=== PATIENT | female | born 1980 | race Caucasian/White ===

== ENCOUNTER 2017-06-03 09:39 | Inpatient (IN) | payer BC ==
[2017-06-03 10:34] LABS: Urine Appearance Clear; Urine Blood Negative (Negative); Urine Color Yellow; Urine Ketones Negative (Negative); Urine Protein Negative (Negative); Urine Specific Gravity 1.008 (1.010-1.030); Urine Urobilinogen Negative (Negative)
[2017-06-03 10:42] LABS: ABS Basophils 0 10^3/ul (0-0.2); ABS Eosinophils 0 10^3/ul (0-0.6); ABS Lymphocytes 1.5 10^3/ul (1.0-4.8); ABS Monocytes 0.1 10^3/ul (0-0.8); ABS Neutrophils 4.6 10^3/ul (1.5-7.7); ABS Nucleated RBC 0 10^3/ul; Eosinophil % 0.1 % (0-6); Hematocrit 40 % (35-47); Hemoglobin 14.2 g/dl (12.0-16.0); Lymphocyte % 24.4 % (25-47); Mean Corpuscular HGB Conc 36 g/dl (31-36); Mean Corpuscular Hemoglobin 32 pg (27-31); Mean Corpuscular Volume 89 fL (80-97); Mean Platelet Volume 10 um3 (7.4-10.4); Nucleated Red Blood Cells % 0.1; Platelet Count 178 10^3/ul (150-450); Red Blood Count 4.49 10^6/ul (4.0-5.4); Red Cell Distribution Width 13 % (10.5-15); White Blood Count 6.3 10^3/ul (3.5-10.8)
[2017-06-03 11:05] LABS: EGFR Non-African American 68.6 (>60)
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
[2017-06-03] MEDS: Diazepam TAB(*) 5 MG PO PRN (16:17)
--- NOTE | 2017-06-03 18:19 | ED ---
Scottie Martin Gabriel, scribed for Jim Ceja MD on 06/03/17 at 1026 . Psychiatric Complaint - HPI Summary HPI Summary: This patient is a 37 year old F presenting to [facility] with a chief complaint of SI that began 5 months ago. She states it was either I was going to jump off the bridge or come here. She denies prior suicidal attempts and states if she did it she would have been successful. Patient was recently diagnosed with ocular melanoma and receives chemotherapy every three months with the next treatment being next month. She has a history of anxiety and depression and takes medication as needed. LNMP was two weeks ago but she is not regular. - History Of Current Complaint Chief Complaint: EDMentalHealth Time Seen by Provider: 06/03/17 10:18 Hx Obtained From: Patient Hx Last Menstrual Period: last week Onset/Duration: Still Present Timing: Constant Severity Initially: Moderate Severity Currently: Moderate Character: Depressed Aggravating Factor(s): Recent Stress Alleviating Factor(s): Nothing Associated Signs And Symptoms: Positive: Negative Has Suicidal: Reports: Thoughts, With A Plan. Denies: Demonstrates Gesture, Has Prior Attempt(s) Has Homicidal: Denies: Thoughts, With A Plan - Allergies/Home Medications Allergies/Adverse Reactions: Allergies Allergy/AdvReac Type Severity Reaction Status Date / Time Erythromycin Allergy Unknown Unknown Verified 01/10/14 10:29 Reaction Details PMH/Surg Hx/FS Hx/Imm Hx Endocrine/Hematology History: Denies: Hx Anticoagulant Therapy, Hx Diabetes, Hx Thyroid Disease Cardiovascular History: Denies: Hx Hypertension, Hx Pacemaker/ICD Respiratory History: Denies: Hx Asthma, Hx Chronic Obstructive Pulmonary Disease (COPD) History: Denies: Hx Renal Disease Sensory History: Denies: Hx Hearing Aid Neurological History: Denies: Hx Dementia, Hx Seizures Psychiatric History: Reports: Hx Anxiety, Hx Depression, Hx Panic Disorder - LITTLE ANXIETY Denies: Hx Substance Abuse - Cancer History Cancer Type, Location and Year: MALIGNANT NEOPLAM EYE Hx Radiation Therapy: Yes - [facility] TO EYE - Surgical History Surgery Procedure, Year, and Place: AC joint reconstruction [id number] ;. [facility] RADIATION RIGHT EYE 04/16/16 TO. 04/20/16 REMOVED RADIATION [place] (ONLY NEEDED FOR RADIATION DURATION); Infectious Disease History: No Infectious Disease History: Denies: Hx Hepatitis, Hx Human Immunodeficiency Virus (HIV), Traveled Outside the [place] in Last 30 Days - Family History Known Family History: Negative: Renal Disease, Respiratory Disease, Seizure Disorder - Social History Occupation: Employed Part-time, Student Alcohol Use: Occasionally Substance Use Type: Reports: None Smoking Status (MU): Never Smoked Tobacco Review of Systems Negative: Fever Negative: Slurred Speech Psychological: Other - SI Positive: Anxious, Depressed All Other Systems Reviewed And Are Negative: Yes Physical Exam - Summary Physical Exam Summary: VITAL SIGNS: Reviewed. GENERAL: Patient is a well-developed and nourished female who is lying comfortable in the stretcher. Patient is not in any acute respiratory distress. HEAD AND FACE: No signs of trauma. No ecchymosis, hematomas or skull depressions. No sinus tenderness. EYES: PERRLA, EOMI x 2, No injected conjunctiva, no nystagmus. EARS: Hearing grossly intact. Ear canals and tympanic membranes are within normal limits. MOUTH: Oropharynx within normal limits. NECK: Supple, trachea is midline, no adenopathy, no JVD, no carotid bruit, no c- spine tenderness, neck with full ROM. CHEST: Symmetric, no tenderness at palpation LUNGS: Clear to auscultation bilaterally. No wheezing or crackles. CVS: Regular rate and rhythm, S1 and S2 present, no murmurs or gallops appreciated. ABDOMEN: Soft, non-tender. No signs of distention. No rebound no guarding, and no masses palpated. Bowel sounds are normal. EXTREMITIES: FROM in all major joints, no edema, no cyanosis or clubbing. NEURO: Alert and oriented x 3. No acute neurological deficits. Speech is normal and follows commands. SKIN: Dry and warm PSYCH: Depressed, anxious, and crying. No homicidal thoughts or plan. No signs of psychosis or pressure speech. No tangential speech. Triage Information Reviewed: Yes Vital Signs On Initial Exam: Initial Vitals Temp Pulse Resp BP Pulse Ox 99.1 F 72 20 129/84 97 06/03/17 09:44 06/03/17 09:44 06/03/17 09:44 06/03/17 09:44 06/03/17 09:44 Vital Signs Reviewed: Yes Diagnostics - Vital Signs Vital Signs Temp Pulse Resp BP Pulse Ox 06/03/17 09:44 99.1 F 72 20 129/84 97 - Laboratory Result Diagrams: 06/03/17 10:25 06/03/17 10:25 Lab Statement: Any lab studies that have been ordered have been reviewed, and results considered in the medical decision making process. Course/Dx - Course Assessment/Plan: Blood work w/o a significant abnormality. He is medically cleared. He is awaiting for a MHE. Patient evaluated by Dr. Joe and recommends admission. Voluntary admission. - Differential Dx/Clinical Impression Differential Diagnosis/HQI/PQRI: Positive: Anxiety, Bipolar Disorder, Depression , Homicidal Ideation, Suicidal Ideation Provider Diagnosis: Depressive disorder Discharge - Discharge Plan Condition: Stable Disposition: ADMITTED TO [facility] documentation as recorded by the Scottie henriquez Gabriel accurately reflects the service I personally performed and the decisions made by , Jim Ceja MD.
[2017-06-03] MEDS: traZODone TAB* 100 MG PO SCH (20:04)
[2017-06-04] MEDS: Diazepam TAB(*) 5 MG PO PRN (09:02)
[2017-06-04] MEDS ORDERED: clonazePAM TAB(*) 0.5 MG PO ONE (12:00)
--- NOTE | 2017-06-04 12:00 | PN ---
MHU: Group Therapy Note - Service Type Service Type: [id number] Group Psychotherapy - Cognitive Behavioral Group Therapy ( CBT):Patient was attentive and participatory in CBT programming this morning, and remained in good behavioral control. Patient expressed positive insights regarding relevant treatment interventions and goals.
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
[2017-06-04] MEDS: traZODone TAB* 100 MG PO SCH (20:45)
[2017-06-04] MEDS: FLUoxetine CAP* 20 MG PO SCH (20:45)
[2017-06-04] MEDS: Clobetasol 0.05% OINT* 30 GM TUBE TOPICAL SCH (20:46)
[2017-06-04] MEDS ORDERED: Docusate CAP* 100 MG ONE (22:02)
[2017-06-04] MEDS: ETHINYL ESTRADIOL PO SCH (22:05)
[2017-06-04] MEDS: FERROUS FUMARATE PO SCH (22:05)
[2017-06-04] MEDS: NORETHINDRONE ACETATE PO SCH (22:05)
[2017-06-04] MEDS: Docusate CAP* 100 MG PO SCH (22:06)
[2017-06-05] MEDS: Docusate CAP* 100 MG PO SCH ×2 (10:02→20:25)
[2017-06-05] MEDS: Clobetasol 0.05% OINT* 30 GM TUBE TOPICAL SCH ×2 (10:02→20:26)
[2017-06-05] MEDS: clonazePAM TAB(*) 0.5 MG PO PRN (13:14)
[2017-06-05] MEDS: traZODone TAB* 100 MG PO SCH (20:25)
[2017-06-05] MEDS: FLUoxetine CAP* 20 MG PO SCH (20:25)
[2017-06-05] MEDS: ETHINYL ESTRADIOL PO SCH (20:26)
[2017-06-05] MEDS: NORETHINDRONE ACETATE PO SCH (20:26)
[2017-06-05] MEDS: FERROUS FUMARATE PO SCH (20:26)
[2017-06-06] MEDS: Docusate CAP* 100 MG PO SCH ×2 (09:51→21:26)
[2017-06-06] MEDS: Clobetasol 0.05% OINT* 30 GM TUBE TOPICAL SCH ×2 (09:51→21:28)
[2017-06-06] MEDS ORDERED: Ibuprofen TAB* 400 MG ONE (13:45)
--- NOTE | 2017-06-06 16:49 | PN ---
Subjective - Subjective Date of Service: 06/06/17 Service Type: 98501 Hosp care 15 min low complexity Subjective: Oren reports a better day with good mood, good sleep and appetite. In the milieu playing Bingo with peers. Tolerating meds well. Denies SI/HI, delusions or hallucinations. Objective - Appearance Appearance: Well Developed/Nourished Dysmorphic Features: No Hygiene: Normal Grooming: Well Kept - Behavior Psychomotor Activities: Normal Exhibits Abnormal Movement: No - Attitude and Relatedness Attitude and Relatedness: Appropriate Eye Contact: Good - Speech Quality: Unpressured Latencies: Normal Quantity: Appropriate - Mood Patient's Decription of Mood: "Great" - Affect Observed Affect: Non-labile - Thought Process Patient's Thought Process: Coherent, Goal Directed Thought Content: No Passive Wish, No Suicidal Planning, No Homicidal Ideation, No Paranoid Ideation - Sensorium Experiencing Hallucinations: No, Sensorium is Clear Type of Hallucinations: Visual: No, Auditory: No, Command: No - Level of Consciousness Level of Consciousness: Alert Orientation: Yes Intact, Yes Orientated to Time, Yes Orientated to Place, Yes Orientated to Person - Impulse Control Impulse Control: Intact - Insight and Judgement Insight and Judgement: Fair - Group Participation Particating in Group Activities: Yes - Medication Management Medication Management Adherence: Yes Assessment - Assessment Merits Inpatient Hospitalization: Consolidate Improvements, Pending Safe DC Plan Plan - Plan Treatment Plan: Name: OREN QUEEN Birthdate: 1980 [id number] Continued Medication Management: Continue Outpt Medication Medications: Current Medications Clobetasol Propionate (Clobetasol 0.05% Oint*) 1 applic TOPICAL BID [facility] Last Admin: 06/06/17 09:51 Dose: Not Given Clonazepam (Klonopin Tab(*)) 0.5 mg PO Q6H PRN PRN Reason: ANXIETY Last Admin: 06/05/17 13:14 Dose: 0.5 mg Docusate Sodium (Colace Cap*) 100 mg PO BID [facility] Last Admin: 06/06/17 09:51 Dose: 100 mg Fluoxetine HCl (Prozac Cap*) 20 mg PO BEDTIME [facility] Last Admin: 06/05/17 20:25 Dose: 20 mg Ibuprofen (Motrin Tab*) 400 mg PO Q2H PRN PRN Reason: PAIN Pto* Lo Loestrin Fe Oral Control Pill 1 dose PO BEDTIME [facility] Last Admin: 06/05/17 20:26 Dose: 1 dose Trazodone HCl (Desyrel Tab*) 100 mg PO BEDTIME [facility] Last Admin: 06/05/17 20:25 Dose: 100 mg - Discharge Plan Discharge Plan: Outpatient Follow Up Outpatient [facility]
[2017-06-06] MEDS: clonazePAM TAB(*) 0.5 MG PO PRN (18:43)
[2017-06-06] MEDS: traZODone TAB* 100 MG PO SCH (21:26)
[2017-06-06] MEDS: FLUoxetine CAP* 20 MG PO SCH (21:26)
[2017-06-06] MEDS: NORETHINDRONE ACETATE PO SCH (21:27)
[2017-06-06] MEDS: ETHINYL ESTRADIOL PO SCH (21:27)
[2017-06-06] MEDS: FERROUS FUMARATE PO SCH (21:27)
[2017-06-07] MEDS: Ibuprofen TAB* 400 MG PO PRN ×2 (01:25→21:58)
[2017-06-07] MEDS: clonazePAM TAB(*) 0.5 MG PO PRN ×2 (01:29→13:49)
[2017-06-07] MEDS: Docusate CAP* 100 MG PO SCH ×2 (10:07→21:59)
[2017-06-07] MEDS: Clobetasol 0.05% OINT* 30 GM TUBE TOPICAL SCH ×2 (10:07→22:01)
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
--- NOTE | 2017-06-07 11:54 | PN ---
MHU: Group Therapy Note - Service Type Service Type: [id number] Group Psychotherapy - Cognitive Behavioral Group Therapy ( CBT):Patient was attentive and participatory in CBT programming this morning, and remained in good behavioral control. Patient expressed positive insights regarding relevant treatment interventions and goals.
[2017-06-07] MEDS: clonazePAM TAB(*) 0.5 MG PO SCH (17:02)
[2017-06-07] MEDS: NORETHINDRONE ACETATE PO SCH (21:59)
[2017-06-07] MEDS: traZODone TAB* 100 MG PO SCH (21:59)
[2017-06-07] MEDS: FERROUS FUMARATE PO SCH (21:59)
[2017-06-07] MEDS: ETHINYL ESTRADIOL PO SCH (21:59)
[2017-06-07] MEDS: FLUoxetine CAP* 20 MG PO SCH (21:59)
[2017-06-08] MEDS: clonazePAM TAB(*) 0.5 MG PO PRN (04:37)
[2017-06-08] MEDS: Clobetasol 0.05% OINT* 30 GM TUBE TOPICAL SCH ×2 (09:02→21:52)
[2017-06-08] MEDS: Docusate CAP* 100 MG PO SCH ×2 (09:02→21:51)
[2017-06-08] MEDS: clonazePAM TAB(*) 0.5 MG PO SCH ×2 (09:04→17:49)
--- NOTE | 2017-06-08 12:55 | PN ---
MHU: Group Therapy Note - Service Type Service Type: [id number] Group Psychotherapy - Cognitive Behavioral Group Therapy ( CBT):Patient was attentive and participatory in CBT programming this morning, and remained in good behavioral control. Patient expressed positive insights regarding relevant treatment interventions and goals.
--- NOTE | 2017-06-08 13:49 | PN ---
Subjective - Subjective Subjective: Psychiatric Attending Progress Note: attended all groups today. brighter affect less depressed. feels klonopin scheduled doses today were very helpful in diminishing racing thoughts and anxiety. patient was observed having fun in group. She reports that groups and family meeting yesterday were cathartic. met with patient X 45 min today. we discussed her childhood, ralationship with mother and father. she agreed that allowing herself to be comforted by mother rather than be the one who is always in the role of comforter to others is ok. The origins of her anxiety in trauma were explored. She feels ready for discharge. Feels she has learned quite a bit in groups here. also feels medicaation is helping her level of anxiety and improved her mood. She has set short term goals of taking time off from work to allow herself to psychologically recover. agrees to return to therapist who is trauma specialist. also wishes to spend time with mother and step mother MSE: brighter affect mood: still mildly depressed no suicidal ideation, intent or plan. future oriented. talked about plans to attend therapy and to spend quality time with mother. 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 Impression: MDD moderate PTSD acute and delayed ocular melanoma Plan: continue medication unchanged dicharge tomorrow
[2017-06-08] MEDS: traZODone TAB* 100 MG PO SCH (21:51)
[2017-06-08] MEDS: FERROUS FUMARATE PO SCH (21:52)
[2017-06-08] MEDS: NORETHINDRONE ACETATE PO SCH (21:52)
[2017-06-08] MEDS: Ibuprofen TAB* 400 MG PO PRN (21:52)
[2017-06-08] MEDS: FLUoxetine CAP* 20 MG PO SCH (21:52)
[2017-06-08] MEDS: ETHINYL ESTRADIOL PO SCH (21:52)
[2017-06-09 07:57] VITALS: BP 101/57
[2017-06-09] MEDS: Clobetasol 0.05% OINT* 30 GM TUBE TOPICAL SCH (09:12)
[2017-06-09] MEDS: Docusate CAP* 100 MG PO SCH (09:12)
[2017-06-09] MEDS: clonazePAM TAB(*) 0.5 MG PO SCH (09:12)
--- NOTE | 2017-06-09 11:46 | DS ---
Discharge Planning - Discharge Planning Medications: Current Medications Clobetasol Propionate (Clobetasol 0.05% Oint*) 1 applic TOPICAL BID [facility] Last Admin: 06/09/17 09:12 Dose: Not Given Clonazepam (Klonopin Tab(*)) 0.5 mg PO Q6H PRN PRN Reason: ANXIETY Last Admin: 06/08/17 04:37 Dose: 0.5 mg Clonazepam (Klonopin Tab(*)) 0.5 mg PO BID@0900,1700 [facility] Last Admin: 06/09/17 09:12 Dose: 0.5 mg Docusate Sodium (Colace Cap*) 100 mg PO BID [facility] Last Admin: 06/09/17 09:12 Dose: 100 mg Fluoxetine HCl (Prozac Cap*) 20 mg PO BEDTIME [facility] Last Admin: 06/08/17 21:52 Dose: 20 mg Ibuprofen (Motrin Tab*) 400 mg PO Q2H PRN PRN Reason: PAIN Last Admin: 06/08/17 21:52 Dose: 400 mg Pto* Lo Loestrin Fe Oral Control Pill 1 dose PO BEDTIME [facility] Last Admin: 06/08/17 21:52 Dose: 1 dose Trazodone HCl (Desyrel Tab*) 100 mg PO BEDTIME [facility] Last Admin: 06/08/17 21:51 Dose: 100 mg Discharge Planning: Prescriptions provided for discharge [] Yes [] No Follow up care details as per social work arrangements. Patient response to discharge plan: [] eager for discharge [] agreeable with discharge plan [] ambivalent about discharge [] disagrees with discharge today
--- NOTE | 2017-06-09 11:55 | PN ---
MHU: Group Therapy Note - Service Type Service Type: [id number] Group Psychotherapy - Cognitive Behavioral Group Therapy ( CBT):Patient was attentive and participatory in CBT programming this morning, and remained in good behavioral control. Patient expressed positive insights regarding relevant treatment interventions and goals.
== END 2017-06-09 13:15 | disposition home or self-care (01) | DRG 751 ==
LOC: ED 09:39 → BSU 15:29
PROVIDERS: ADMIT Psychiatry & Neurology Psychiatry; ATTEND Psychiatry & Neurology Psychiatry
DX: F33.1 Major depressive disorder, recurrent, moderate (principal); C43.8 Malignant melanoma of overlapping sites of skin; R45.851 Suicidal ideations; F43.11 Post-traumatic stress disorder, acute; Z81.8 Family history of other mental and behavioral disorders
CPT/HCPCS: 36415; 80053; 80307; 80320; 80329; 81003; 84443; 85025; 90853; 99222; 99231; 99232; 99233; 99238; A9270-GY; G0480

== ENCOUNTER 2017-08-23 12:45 | Emergency (ER) | payer BC ==
[2017-08-23 13:41] VITALS: BP 113/54
--- NOTE | 2017-08-23 13:49 | UC ---
Throat Pain/Nasal Darnell HPI - HPI Summary HPI Summary: Pt c/o nasal congestion, sinus pressure, bilateral ear fullness X 4 days. Pt has tried OTC cough and cold medications with no improvement. - History of Current Complaint Chief Complaint: UCGeneralIllness Stated Complaint: SINUSES Time Seen by Provider: 08/23/17 13:44 Hx Obtained From: Patient Hx Last Menstrual Period: 08/20/17 ?: No Onset/Duration: Gradual Onset, Lasting Days Severity: Moderate Pain Intensity: 8 Associated Signs & Symptoms: Positive: Sinus Discomfort - Epiglottits Risk Factors Epiglottis Risk Factors: Negative - Allergies/Home Medications Allergies/Adverse Reactions: Allergies Allergy/AdvReac Type Severity Reaction Status Date / Time erythromycin base Allergy Unknown Verified 08/23/17 13:37 Reaction Details fentanyl Allergy Rash And Verified 08/23/17 13:37 Itching PMH/Surg Hx/FS Hx/Imm Hx Previously Healthy: Yes Other History Of: Negative For: Anticoagulant Therapy - Surgical History Surgical History: None Surgery Procedure, Year, and Place: AC joint reconstruction [id number] ; RIGHT SHOULDER. PLAQUE RADIATION RIGHT EYE 04/16/16 TO. 04/20/16 REMOVED RADIATION PLAQUE (ONLY NEEDED FOR RADIATION DURATION);. LIVER BIOPSY 06/2017-[facility] - Family History Known Family History: Negative: Renal Disease, Respiratory Disease, Seizure Disorder - Social History Occupation: Employed Full-time Lives: Alone Alcohol Use: Rare Substance Use Type: None Smoking Status (MU): Never Smoked Tobacco Amount Used/How Often: Pt has not used tobacco in last 30 days. Have You Smoked in the Last Year: No - Immunization History Most Recent Influenza Vaccination: no Most Recent Pneumonia Vaccination: NA Review of Systems Constitutional: Chills, Fatigue Skin: Negative Eyes: Negative ENT: Sinus Congestion, Sinus Pain/Tenderness Respiratory: Negative Cardiovascular: Negative Gastrointestinal: Negative Genitourinary: Negative Motor: Negative Neurovascular: Negative Musculoskeletal: Negative Neurological: Headache Psychological: Negative Is Patient Immunocompromised?: No All Other Systems Reviewed And Are Negative: Yes Physical Exam Triage Information Reviewed: Yes Appearance: Ill-Appearing Vital Signs: Initial Vital Signs Temp 98.9 F 08/23/17 13:35 Pulse 78 08/23/17 13:35 Resp 16 08/23/17 13:35 BP 113/54 08/23/17 13:35 Pulse Ox 98 08/23/17 13:35 Vital Signs Reviewed: Yes Eye Exam: Normal ENT Exam: Other ENT: Positive: TM bulging, Sinus tenderness Dental Exam: Normal Neck exam: Normal Respiratory Exam: Normal Cardiovascular Exam: Normal Musculoskeletal Exam: Normal Neurological Exam: Normal Psychological Exam: Normal Skin Exam: Normal Throat Pain/Nasal Course/Dx - Course Course Of Treatment: Pt declined antibiotics and requested prednisone only. - Differential Dx/Diagnosis Differential Diagnosis/HQI/PQRI: Sinusitis, URI Provider Diagnoses: sinusitis Discharge - Sign-Out/Discharge Documenting (check all that apply): Discharge - Discharge Plan Condition: Stable Disposition: HOME Prescriptions: Cetirizine HCl/Pseudoephedrine [Zyrtec-D Tablet] 1 each PO DAILY #7 tab predniSONE TAB* [Deltasone TAB*] 40 mg PO DAILY #8 tab Patient Education Materials: Sinusitis (ED), Warm Compress or Soak (ED) Referrals: Gerardo Gottlieb MD [Primary Care Provider] - Additional Instructions: Please follow up with your PCP or return to clinic as needed. - Billing Disposition and Condition Condition: STABLE Disposition: HOME
== END 2017-08-23 14:10 | disposition home or self-care (01) ==
LOC: UCCORT 12:45
DX: J32.9 Chronic sinusitis, unspecified (principal); Z88.8 Allergy status to other drugs, medicaments and biological substances; Z88.3 Allergy status to other anti-infective agents
CPT/HCPCS: 99212; G0463

== ENCOUNTER 2018-03-29 16:40 | Emergency (ER) | payer BC ==
[2018-03-29 17:33] VITALS: BP 117/77
--- NOTE | 2018-03-29 17:50 | UC ---
Throat Pain/Nasal Darnell HPI - HPI Summary HPI Summary: 38 year old woman comes in today with a chief complaint of persistent cough. She's had intermittent recurrent prolonged symptoms such as these in the past. She has seen ENT for them. This particular episode started almost 2 months ago. She reports clear rhinorrhea. Cough is mostly dry. States she's tried all the [id number] medicines she has been able to get hold of. She's done that he brought saline nasal spray steroid nasal spray. She does have some GERD but she really takes a PPI. No fevers or chills no shortness of breath. NO Sinus pressure. She is being treated for ocular melanoma. Patient was treated in the past with prednisone for this when she was on the prednisone for 7 days she ended up getting admitted for mental health evaluation at the hospital with the prednisone side effects being the cause of the psychiatric problem. - History of Current Complaint Chief Complaint: UCRespiratory Stated Complaint: COUGH,SORE THROAT Time Seen by Provider: 03/29/18 17:27 Hx Last Menstrual Period: 03/06/18 Pain Intensity: 6 - Allergies/Home Medications Allergies/Adverse Reactions: Allergies Allergy/AdvReac Type Severity Reaction Status Date / Time erythromycin base Allergy Unknown Verified 03/29/18 17:26 Reaction Details fentanyl Allergy Rash And Verified 03/29/18 17:26 Itching Home Medications: Home Medications Ethinyl Estradiol/Drospirenone [Raquel 28 Tablet] 1 each PO DAILY 03/29/18 [ History Confirmed 03/29/18] Pantoprazole Sodium [Protonix] 20 mg PO DAILY 03/29/18 [History Confirmed ] PMH/Surg Hx/FS Hx/Imm Hx GI/ History: Gastroesophageal Reflux Other Cancer History: OCULAR MELANOMA Other History Of: Negative For: Anticoagulant Therapy - Surgical History Surgical History: None Surgery Procedure, Year, and Place: AC joint reconstruction [id number] ; RIGHT SHOULDER. PLAQUE RADIATION RIGHT EYE 04/16/16 TO. 04/20/16 REMOVED RADIATION PLAQUE (ONLY NEEDED FOR RADIATION DURATION);. LIVER BIOPSY 06/2017-[facility]. RADIOEMBOLIZATION LIVER. 08/2017. live radiation 02/2018 - Family History Known Family History: Negative: Renal Disease, Respiratory Disease, Seizure Disorder - Social History Alcohol Use: Rare Substance Use Type: None Smoking Status (MU): Never Smoked Tobacco Amount Used/How Often: Pt has not used tobacco in last 30 days. Have You Smoked in the Last Year: No - Immunization History Most Recent Influenza Vaccination: no Most Recent Pneumonia Vaccination: NA Review of Systems All Other Systems Reviewed And Are Negative: Yes Constitutional: Positive: Negative Skin: Positive: Negative Eyes: Positive: Negative ENT: Positive: Other - POST NASAL DRIP Respiratory: Positive: Cough. Negative: Shortness Of Breath Cardiovascular: Positive: Negative Gastrointestinal: Positive: Negative Motor: Positive: Negative Neurovascular: Positive: Negative Musculoskeletal: Positive: Negative Neurological: Positive: Negative Psychological: Positive: Negative Is Patient Immunocompromised?: No Physical Exam Triage Information Reviewed: Yes Appearance: Well-Appearing, No Pain Distress, Well-Nourished Vital Signs: Initial Vital Signs Temp 97.7 F 03/29/18 17:27 Pulse 62 03/29/18 17:27 Resp 16 03/29/18 17:27 BP 117/77 03/29/18 17:27 Pulse Ox 100 03/29/18 17:27 Vital Signs Reviewed: Yes Eyes: Positive: Conjunctiva Clear ENT: Positive: Nasal congestion, TMs normal, Other - DRY COUGH Respiratory: Positive: Lungs clear, Normal breath sounds, No respiratory distress, Other: - DRY COUGH Cardiovascular: Positive: RRR Musculoskeletal Exam: Normal Musculoskeletal: Positive: Strength Intact, ROM Intact Neurological Exam: Normal Neurological: Positive: Alert, Muscle Tone Normal Psychological Exam: Normal Psychological: Positive: Age Appropriate Behavior Skin Exam: Normal Throat Pain/Nasal Course/Dx - Course Course Of Treatment: Review the chest x-ray with the patient. I did not see any acute disease process on x-ray. Radiologist reading is pending. To the duration of symptoms we'll plan to treat with Augmentin. Also can use Sudafed as a decongestant. Patient wasn't sure whether or not the nebulized albuterol helped her symptoms. We'll prescribe an albuterol inhaler. Also recommended be more aggressive with treatment of reflux. Also do a prescription for Medrol Dosepak. Patient in the past as had some problems with prednisone and we discussed that if she starts to have any ill effects she will stop the steroid. Also a prescription of Tessalon Perles if that helps symptomatically with the cough. I recommended follow-up with ENT for further evaluation and treatment. - Differential Dx/Diagnosis Provider Diagnoses: COUGH Discharge - Sign-Out/Discharge Documenting (check all that apply): Patient Departure All imaging exams completed and their final reports reviewed: No - Discharge Plan Condition: Stable Disposition: HOME Prescriptions: Albuterol HFA INHALER* [Ventolin HFA Inhaler*] 2 puff INH Q4H PRN #1 mdi PRN Reason: Cough Amoxicillin/Clavulanate TAB* [Augmentin TAB 875*] 875 mg PO BID #20 tab Benzonatate CAP* [Tessalon 100 MG CAP*] 100 mg PO TID PRN #20 cap PRN Reason: Cough Fluconazole [Diflucan 150 MG (NF)] 150 mg PO ONCE #2 tab methylPREDNISolone [Medrol Dosepak 4 MG*] 0 mg PO .SEE MARY GRACE INSTRUCTION #1 mary grace Patient Education Materials: Chronic Cough (ED) Referrals: Gerardo Gottlieb MD [Primary Care Provider] - Peewee Weller MD [Medical Doctor] - Additional Instructions: FOLLOW UP WITH ENT. USE THE ALBUTEROL DIRECTED NEEDED IF HELPFUL. TAKE YOUR ANTACID MEDICATION DAILY. GET RECHECKED FOR ANY WORSENING OF YOUR CONDITION OR QUESTIONS OR CONCERNS. - Billing Disposition and Condition Condition: STABLE Disposition: Home
[2018-03-29] MEDS ORDERED: Albuterol 2.5 MG/3 ML NEB.SOL* (0.083%) INH ONE (17:54)
--- NOTE | 2018-03-30 09:33 | UC ---
- Progress Note Progress Note: Patient Name: PATRICA QUEEN Medical Record#: [id number] Ordering Physician: Jaziel Nugent MD Acct.#: [id number] : 1980 Age: 38 Sex: F Location: [facility] Exam Date: 03/29/181753 ADM Status: [facility] Order Information: CHEST PA & LAT 2 VWS Accession Number: [id number] CPT: 15098 INDICATION: Chronic dry cough since beginning of February. COMPARISON: December 07, 2017 CT TECHNIQUE: Dual energy PA and routine lateral views of the chest were obtained. REPORT: Clear lungs and pleural spaces. The heart, pulmonary vasculature, and mediastinal contours are unremarkable. Upper vascular coils. Unremarkable osseous structures and soft tissue contours. IMPRESSION: #. No evidence for acute intrathoracic disease. R0 Preliminary Imaging Read NO DISCREPANCY <Electronically signed by Jim Rodriguez MD in OV> 03/30/18718 Dictated By: Jim Rodriguez MD Dictated Date/Time: 03/30/18718 Transcribed Date/Time: 03/30/18716 Copy to: CC:Gerardo Gottlieb MD; Jaziel Nugent MD Imaging - [facility] [address] [address] ph ([phone]) ph ([phone]) ph ([phone]) This report is only to be considered final once signed by the Provider(s) as displayed in the "<Electronically Signed by >" field (s). Absence of a signature indicates the report is in a draft status and still needs to be finalized. In the event this document was created by someone other than the signing Provider, the individual initiating the document will be listed in the "Entered by:" or "Dictated by:" schmitt. 1 of 1 Discharge - Sign-Out/Discharge Documenting (check all that apply): Post-Discharge Follow Up All imaging exams completed and their final reports reviewed: Yes - Discharge Plan Condition: Stable Disposition: HOME Prescriptions: Albuterol HFA INHALER* [Ventolin HFA Inhaler*] 2 puff INH Q4H PRN #1 mdi PRN Reason: Cough Amoxicillin/Clavulanate TAB* [Augmentin TAB 875*] 875 mg PO BID #20 tab Benzonatate CAP* [Tessalon 100 MG CAP*] 100 mg PO TID PRN #20 cap PRN Reason: Cough Fluconazole [Diflucan 150 MG (NF)] 150 mg PO ONCE #2 tab methylPREDNISolone [Medrol Dosepak 4 MG*] 0 mg PO .SEE MARY GRACE INSTRUCTION #1 mary grace Patient Education Materials: Chronic Cough (ED) Referrals: Peewee Weller MD [Medical Doctor] - Gerardo Gottlieb MD [Primary Care Provider] - Additional Instructions: FOLLOW UP WITH ENT. USE THE ALBUTEROL DIRECTED NEEDED IF HELPFUL. TAKE YOUR ANTACID MEDICATION DAILY. GET RECHECKED FOR ANY WORSENING OF YOUR CONDITION OR QUESTIONS OR CONCERNS. - Billing Disposition and Condition Condition: STABLE Disposition: Home
== END 2018-03-29 19:19 | disposition home or self-care (01) ==
LOC: UCCORT 16:40
DX: R05 Cough (principal); J02.9 Acute pharyngitis, unspecified; K21.9 Gastro-esophageal reflux disease without esophagitis; Z88.1 Allergy status to other antibiotic agents; Z88.4 Allergy status to anesthetic agent; Z79.899 Other long term (current) drug therapy
CPT/HCPCS: 71046; 99212; G0463

== ENCOUNTER 2018-09-12 07:49 | Emergency (ER) | payer BC ==
[2018-09-12 08:08] VITALS: BP 122/72
--- NOTE | 2018-09-12 08:28 | UC ---
Skin Complaint HPI - HPI Summary HPI Summary: Pt presents with c/o areas of itchy skin that she is worried are insect bites. 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 Pt states that she had an anaphylactic reaction last week to fentanyl patch. Pt states that she does have anxiety and is using ativan as needed but thinks that she has grown tolerant of it. - History of Current Complaint Time Seen by Provider: 09/12/18 08:05 Stated Complaint: SKIN CONCERN Hx Obtained From: Patient Hx Last Menstrual Period: 03/06/18 ?: No Onset/Duration: Sudden Onset, Lasting Days, Still Present Skin Exposure Onset/Duration: Days Ago Timing: Constant Onset Severity: Mild Current Severity: Mild Pain Intensity: 0 Location: Discrete - left arm, left side of trunk, left lower leg. Character: Pruritus, Redness Aggravating Factor(s): Showering - hot water Alleviating Factor(s): Other - steroids Associated Signs & Symptoms: Positive: Rash Related History: Other: - getting monthly chemotherapy - Allergy/Home Medications Allergies/Adverse Reactions: Allergies Allergy/AdvReac Type Severity Reaction Status Date / Time erythromycin base Allergy Unknown Verified 09/12/18 08:04 Reaction Details fentanyl Allergy Rash And Verified 09/12/18 08:04 Itching Home Medications: Home Medications Dexamethasone TAB* [Decadron TAB*] mg PO BID 09/12/18 [History] Famotidine TAB* [Pepcid 20 MG TAB*] 40 mg PO BID 09/12/18 [History Confirmed 10/26] HYDROmorphone TAB* [Dilaudid TAB*] 2 mg PO Q4H PRN 09/12/18 [History Confirmed 09/12/18] diPHENhydraMINE PO* [Benadryl PO 25 MG TAB*] 25 mg PO Q6H PRN 09/12/18 [History Confirmed 09/12/18] PMH/Surg Hx/FS Hx/Imm Hx Previously Healthy: No - 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 [facility] RADIATION RIGHT EYE 04/16/16 TO. 04/20/16 REMOVED RADIATION [place] (ONLY NEEDED FOR RADIATION DURATION);. LIVER BIOPSY 06/2017-[facility]. RADIOEMBOLIZATION LIVER. 08/2017. LIVER RADIATION 02/2018 - Family History Known Family History: Negative: Renal Disease, Respiratory Disease, Seizure Disorder - Social History Occupation: Retired Lives: Alone Alcohol Use: None Substance Use Type: Prescribed Substance Use Comment - Amount & Last Used: Dilaudid PRN & ~08/29/18 Smoking Status (MU): Never Smoked Tobacco Amount Used/How Often: Pt has not used tobacco in last 30 days. Have You Smoked in the Last Year: No - Immunization History Most Recent Influenza Vaccination: no Most Recent Pneumonia Vaccination: NA Vaccination Up to Date: Yes Review of Systems All Other Systems Reviewed And Are Negative: Yes Constitutional: Positive: Negative Skin: Positive: Rash Eyes: Positive: Negative ENT: Positive: Negative Respiratory: Positive: Negative Cardiovascular: Positive: Negative Gastrointestinal: Positive: Negative Genitourinary: Positive: Negative Motor: Positive: Negative Neurovascular: Positive: Negative Musculoskeletal: Positive: Negative Neurological: Positive: Negative Psychological: Positive: Negative Is Patient Immunocompromised?: No Physical Exam Triage Information Reviewed: Yes Appearance: Other: - anxious Vital Signs: Initial Vital Signs Temp 97.7 F 09/12/18 08:00 Pulse 61 09/12/18 08:00 Resp 18 09/12/18 08:00 BP 122/72 09/12/18 08:00 Pulse Ox 100 09/12/18 08:00 Vital Signs Reviewed: Yes Eye Exam: Normal ENT Exam: Normal Dental Exam: Normal Neck exam: Normal Respiratory Exam: Normal Musculoskeletal Exam: Normal Neurological Exam: Normal Psychological Exam: Normal Skin: Positive: Rashes - left forearm, left lateral trunk, and left lower extremity. smal areas of raised, erythematous pin prick areas with associated scratch guzman where pt reports scratching at her skin. Course/Dx - Differential Diagnoses - Skin Complaint Differential Diagnoses: Contact Dermatitis, Urticaria - Diagnoses Provider Diagnosis: Rash and nonspecific skin eruption, History of chemotherapy Discharge - Sign-Out/Discharge Documenting (check all that apply): Patient Departure All imaging exams completed and their final reports reviewed: No Studies - Discharge Plan Condition: Stable Disposition: HOME Patient Education Materials: Contact Dermatitis (ED) Referrals: Jono Pate MD [Medical Doctor] - As Soon As Possible Gerardo Gottlieb MD [Primary Care Provider] - If Needed Additional Instructions: PLEASE FOLLOW UP WITH YOUR ONCOLOGIST IN [place] SCHEDULED OR EARLIER IF NEEDED. PLEASE FOLLOW UP WITH YOUR ENT SPECIALIST, DR PATE SOON POSSIBLE. PLEASE DISCUSS WITH YOUR ONCOLOGIST THE SYMPTOMS WE DISCUSSED AT TODAY'S VISIT AND FOLLOW UP WITH REGARD TO YOUR COMPLAINT ABOUT WORSENING ANXIETY. - Billing Disposition and Condition Condition: STABLE Disposition: Home
== END 2018-09-12 08:34 | disposition home or self-care (01) ==
LOC: UCCORT 07:49
DX: R21 Rash and other nonspecific skin eruption (principal); C69.90 Malignant neoplasm of unspecified site of unspecified eye; F41.9 Anxiety disorder, unspecified; Z88.1 Allergy status to other antibiotic agents; Z88.8 Allergy status to other drugs, medicaments and biological substances; Z92.21 Personal history of antineoplastic chemotherapy
CPT/HCPCS: 99211; G0463

== ENCOUNTER 2018-10-17 09:50 | Inpatient (IN) | payer BC ==
[2018-10-17] MEDS ORDERED: Ondansetron ODT TAB* 4 MG SL PRN (10:08)
[2018-10-17] MEDS ORDERED: LORazepam INJ* 2 MG/ML 1 ML VIAL IV PUSH PRN (10:53)
[2018-10-17] MEDS ORDERED: Lorazepam PYXIS KEY PRN (10:53)
[2018-10-17] MEDS ORDERED: Ondansetron INJ* 2 MG/ML VIAL IV PRN (11:10)
[2018-10-17] MEDS ORDERED: diPHENhydraMINE PO* 25 MG PO PRN (11:35)
[2018-10-17] MEDS ORDERED: fentaNYL PATCH 12 MCG/HR TRANSDERM SCH (12:00)
[2018-10-17] MEDS: HYDROmorphone INJ1* 1 MG/ML SYRINGE IV SLOW PU PRN (12:55)
[2018-10-17] MEDS: Docusate CAP* 100 MG PO PRN (12:58)
[2018-10-17] MEDS: Enoxaparin(*) 40 MG/0.4 ML SYR SUBCUT SCH (12:59)
[2018-10-17] MEDS: NS 0.9% 1000 ML** 1,000 ML IV SCH ×2 (13:12→22:45)
[2018-10-17 15:01] LABS: Hematocrit 32 % (35-47); Hemoglobin 11.1 g/dL (12.0-16.0); Mean Corpuscular HGB Conc 34 g/dL (31-36); Mean Corpuscular Hemoglobin 33 pg (27-31); Mean Corpuscular Volume 96 fL (80-97); Red Blood Count 3.38 10^6 /uL (3.70-4.87); Red Cell Distribution Width 15 % (10-15); White Blood Count 5.6 10^3/uL (3.5-10.8)
[2018-10-17 15:07] LABS: Albumin 3.3 g/dL (3.2-5.2); Albumin/Globulin Ratio 1.2 (1-3); BUN/Creatinine Ratio 15.6 (8-20); C Reactive Protein 123.47 mg/L (<8.01); Calcium 8.7 mg/dL (8.6-10.3); EGFR African American 102.6 (>60); EGFR Non-African American 84.8 (>60); Globulin 2.8 g/dL (2-4); Magnesium 1.8 mg/dL (1.9-2.7); Potassium 4.2 mmol/L (3.5-5.0); Total Bilirubin 1.4 mg/dL (0.2-1.0); Total Protein 6.1 g/dL (6.4-8.9)
[2018-10-17 15:29] LABS: ABS Lymphocytes 0.7 10^3/ul (1.0-4.8); ABS Monocytes 0.5 10^3/ul (0-0.8); ABS Neutrophils 4.5 10^3/ul (1.5-7.7); Eosinophil % 0.3 %; Lymphocyte % 12.5 %; Mean Platelet Volume 8.5 fL (7.4-10.4); Nucleated Red Blood Cells % 0.1; Platelet Count 89 10^3/uL (150-450)
[2018-10-17] MEDS ORDERED: Gadoteridol* (CONTRAST) 279.3 MG/ML 10 ML IV ONE (16:20)
[2018-10-17] MEDS ORDERED: Iohexol 300* (CONTRAST) 10 ML SDV IV ONE (16:57)
[2018-10-17 17:37] LABS: Erythrocyte Sed Rate 86 mm/Hr (0-19)
[2018-10-17] MEDS ORDERED: PROCHLORPERAZINE INJ 5 MG/ML 2 ML VIAL IV PRN (18:09)
[2018-10-17] MEDS: Acetaminophen TAB* 325 MG PO PRN (18:35)
[2018-10-17] MEDS: fentaNYL Patch Check Q Shift 1 NOTE FOLLOW UP SCH (19:09)
[2018-10-17 20:00] LABS: Urine Appearance Cloudy; Urine Bacteria 1+ (Absent); Urine Bilirubin Negative (Negative); Urine Blood 2+ (Negative); Urine Color Yellow; Urine Glucose Negative (Negative); Urine Ketones 1+ (Negative); Urine Nitrite Negative (Negative); Urine Protein Negative (Negative); Urine Red Blood Cell Trace(0-2/hpf) (Absent); Urine Specific Gravity 1.013 (1.010-1.030); Urine Squamous Epithelial Cell Present (Absent); Urine Urobilinogen Negative (Negative); Urine White Blood Cell Trace(0-5/hpf) (Absent)
[2018-10-17] MEDS: PTO:Norethindrone (NF) 0.35 MG TAB PO SCH (20:57)
[2018-10-17] MEDS: Famotidine TAB* 20 MG PO SCH (20:57)
[2018-10-18] MEDS: fentaNYL Patch Check Q Shift 1 NOTE FOLLOW UP SCH ×2 (06:55→18:26)
[2018-10-18] MEDS: NS 0.9% 1000 ML** 1,000 ML IV SCH ×2 (08:35→18:29)
[2018-10-18] MEDS: Famotidine TAB* 20 MG PO SCH ×2 (08:35→20:06)
[2018-10-18] MEDS: Docusate CAP* 100 MG PO PRN (08:43)
[2018-10-18] MEDS: Acetaminophen TAB* 325 MG PO PRN ×2 (08:44→18:13)
[2018-10-18] MEDS ORDERED: Polyethylene Glycol 3350* 17 GM PACKET PO PRN (10:19)
[2018-10-18] MEDS: Enoxaparin(*) 40 MG/0.4 ML SYR SUBCUT SCH (11:15)
[2018-10-18] MEDS: HYDROmorphone INJ1* 1 MG/ML SYRINGE IV SLOW PU PRN (17:07)
[2018-10-18] MEDS: PTO:Norethindrone (NF) 0.35 MG TAB PO SCH (20:07)
[2018-10-19] MEDS: Acetaminophen TAB* 325 MG PO PRN (03:12)
[2018-10-19] MEDS: NS 0.9% 1000 ML** 1,000 ML IV SCH (05:56)
[2018-10-19] MEDS: Docusate CAP* 100 MG PO PRN (05:57)
[2018-10-19] MEDS: fentaNYL Patch Check Q Shift 1 NOTE FOLLOW UP SCH (06:48)
[2018-10-19 07:54] VITALS: BP 97/63
[2018-10-19] MEDS: Famotidine TAB* 20 MG PO SCH (09:27)
[2018-10-19] MEDS: HYDROmorphone INJ1* 1 MG/ML SYRINGE IV SLOW PU PRN (10:39)
[2018-10-19] MEDS: Enoxaparin(*) 40 MG/0.4 ML SYR SUBCUT SCH (12:46)
== END 2018-10-19 13:40 | disposition home or self-care (01) | DRG 722 ==
LOC: MEDTELE 12:12 → OBSVTOIN 12:12
PROVIDERS: ADMIT Internal Medicine Hematology & Oncology; ATTEND Internal Medicine Hematology & Oncology
DX: R50.9 Fever, unspecified (principal); C79.51 Secondary malignant neoplasm of bone; C78.7 Secondary malignant neoplasm of liver and intrahepatic bile duct; R52 Pain, unspecified; R11.2 Nausea with vomiting, unspecified; C69.40 Malignant neoplasm of unspecified ciliary body; F41.9 Anxiety disorder, unspecified; R91.8 Other nonspecific abnormal finding of lung field; Z88.6 Allergy status to analgesic agent; Z88.1 Allergy status to other antibiotic agents; Z88.8 Allergy status to other drugs, medicaments and biological substances; Z80.51 Family history of malignant neoplasm of kidney
CPT/HCPCS: 36415; 70553; 71260; 74177; 80053; 81003; 81015; 83605; 83735; 85025; 85060; 85652; 86140; 87040; 87086; 93005; 99220; 99223; 99233; A9270-GY; A9579; J0780; J1170; J1650; J2060; J2405; Q9967

== ENCOUNTER 2018-11-07 15:58 | Inpatient (IN) | payer BC ==
[2018-11-07] MEDS ORDERED: Acetaminophen TAB* 325 MG PO PRN (16:28)
[2018-11-07] MEDS ORDERED: NS 0.9% 1000 ML** 1,000 ML IV SCH (16:30)
[2018-11-07] MEDS ORDERED: Lorazepam PYXIS KEY PRN (16:41)
[2018-11-07] MEDS ORDERED: Docusate CAP* 100 MG PO PRN (16:42)
[2018-11-07] MEDS ORDERED: Scopolamine 1.5 mg* PATCH TRANSDERM SCH (17:00)
[2018-11-07] MEDS ORDERED: fentaNYL PATCHs 100 MCG/HR TRANSDERM SCH (17:00)
[2018-11-07] MEDS ORDERED: Lactulose 300 ML for PR* 10 GM/15 ML BTL PR ONE (17:00)
[2018-11-07] MEDS: Enoxaparin(*) 40 MG/0.4 ML SYR SUBCUT SCH (17:14)
[2018-11-07] MEDS: Morphine ORAL CONCENTRATE* 5 MG/0.25 ML ORAL.SYRIN SL PRN ×2 (17:18→19:45)
[2018-11-07] MEDS: fentaNYL Patch Check Q Shift 1 NOTE SCH (18:46)
[2018-11-07] MEDS: Famotidine TAB* 20 MG PO SCH (22:17)
[2018-11-07] MEDS: Ondansetron INJ* 2 MG/ML VIAL IV PRN (22:32)
[2018-11-07] MEDS: LORazepam INJ* 2 MG/ML 1 ML VIAL IV PUSH PRN (22:37)
[2018-11-07] MEDS: HYDROmorphone TAB* 4 MG PO PRN (22:54)
[2018-11-08] MEDS: fentaNYL Patch Check Q Shift 1 NOTE SCH ×2 (06:44→18:53)
[2018-11-08] MEDS: Famotidine TAB* 20 MG PO SCH (08:22)
[2018-11-08] MEDS: LORazepam INJ* 2 MG/ML 1 ML VIAL IV PUSH PRN ×2 (08:47→18:24)
[2018-11-08] MEDS: HYDROmorphone TAB* 4 MG PO PRN ×4 (10:13→21:49)
[2018-11-08] MEDS ORDERED: Famotidine TAB* 20 MG PO PRN (11:19)
[2018-11-08] MEDS ORDERED: LORazepam TAB(*) 0.5 MG PO PRN (11:19)
--- NOTE | 2018-11-08 11:21 | PN ---
Progress Note - Progress Note Date of Service: 11/08/18 SOAP: Subjective: []Some confusion last night. Pain has been OK. Still very constipated. Surrounded by family and all motivated to get her home. Medications: Acetaminophen (Tylenol Tab*) 650 mg PO Q4H PRN PRN Reason: FEVER/PAIN Enoxaparin Sodium (Lovenox(*)) 40 mg SUBCUT Q24H [facility] Last Admin: 11/07/18 17:14 Dose: 40 mg Famotidine (Pepcid Tab*) 40 mg PO BID PRN PRN Reason: reflux Fentanyl (Duragesic Patch 100 Mcg/Hr *) 100 mcg TRANSDERM Q72H [facility] Last Admin: 11/07/18 17:19 Dose: 100 mcg Hydromorphone HCl (Dilaudid Tab*) 4 mg PO Q2H PRN PRN Reason: PAIN Last Admin: 11/08/18 10:13 Dose: 4 mg Lactulose (Lactulose*) 30 ml PO TID [facility] Last Admin: 11/08/18 08:22 Dose: 30 ml Lorazepam (Ativan Inj*) 0.5 mg IV PUSH Q2H PRN PRN Reason: nausea/anxiety Lorazepam (Ativan Tab(*)) 0.5 mg PO Q4H PRN PRN Reason: Anxiety/agitation Miscellaneous (Ativan Pyxis Lassiter) 1 ea N/A .ATIVAN IV LASSITER PRN PRN Reason: PYXIS LASSITER Ondansetron HCl (Zofran Inj*) 4 mg IV Q4H PRN PRN Reason: NAUSEA Last Admin: 11/07/18 22:32 Dose: 4 mg Pharmacy Profile Note (Fentanyl Patch Check Q Shift) 1 note N/A 0700,1900 [facility] Last Admin: 11/08/18 06:44 Dose: 1 note Scopolamine (Transderm-Scop 1.5 Mg Patch*) 1 patch TRANSDERM Q72H [facility] Last Admin: 11/07/18 17:13 Dose: 1 patch Sodium Biphosphate/Sodium Phosphate (Fleet Enema*) 1 bottle [place] BID ONE Stop: 11/08/18 22:01 Objective: [] Vital Signs Temp Pulse Resp BP Pulse Ox 98.8 F 83 18 97/62 97 11/08/18 07:27 11/08/18 07:27 11/08/18 10:49 11/08/18 07:27 11/08/18 07:27 Alert and oriented, somewhat sleepy, however actively involved in discussion EOMI, +icterus Jaundice Resp. even and non-labored +3 edema bilat. LEs Laboratory Tests 11/07/18 11/07/18 14:30 14:30 WBC 8.0 Hgb 10.0 L Plt Count 121 L Sodium 132 L Potassium 3.8 Creatinine 0.82 Total Bilirubin 10.30 H Albumin 3.0 L Assessment: []38 yo female with metastatic melanoma admitted for symptom management with plan to transition to hospice. I suspect with evidence of liver failure her prognosis is measured in weeks at most, she is aware of this and involved in decision making Plan: []- try fleets enema now and repeat x1 if needed - cont. current pain meds and OK to use morphine concentrate PRN as was working at home - try PO ativan to assess for symptom management at home vs need for IV meds which would indicate higher level care needs - focus on comfort measures DNR
--- NOTE | 2018-11-08 11:54 | CONSULT ---
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 Pt was diagnosed 03/2018 received radioactive plaque therapy but was lost to follow up for a year. She was diagnosed with liver metastatic disease in 06/2017 and received SIRspheres for both lobes. June 2018 she progressed again and now has had 3 cycles of TACE with BCNU. 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 Brother of metastatic RCC. Pt has just completed palliative radiation to the sternum. [place] H/H 03/07, BUN/Cr 13/.82, egfr 78.9, tbil 10.3, ast 100, alt 59, tprot 6 and alb 3. She was admitted to get symptoms under control and then wants to go home with hospice she has caretakers. - Objective Active Medications: Acetaminophen (Tylenol Tab*) 650 mg PO Q4H PRN PRN Reason: FEVER/PAIN Enoxaparin Sodium (Lovenox(*)) 40 mg SUBCUT Q24H [facility] Last Admin: 11/07/18 17:14 Dose: 40 mg Famotidine (Pepcid Tab*) 40 mg PO BID PRN PRN Reason: reflux Fentanyl (Duragesic Patch 100 Mcg/Hr *) 100 mcg TRANSDERM Q72H [facility] Last Admin: 11/07/18 17:19 Dose: 100 mcg Hydromorphone HCl (Dilaudid Tab*) 4 mg PO Q2H PRN PRN Reason: PAIN Last Admin: 11/08/18 10:13 Dose: 4 mg Lactulose (Lactulose*) 30 ml PO TID [facility] Last Admin: 11/08/18 08:22 Dose: 30 ml Lorazepam (Ativan Inj*) 0.5 mg IV PUSH Q2H PRN PRN Reason: nausea/anxiety Lorazepam (Ativan Tab(*)) 0.5 mg PO Q4H PRN PRN Reason: Anxiety/agitation Miscellaneous (Ativan Pyxis Lassiter) 1 ea N/A .ATIVAN IV LASSITER PRN PRN Reason: PYXIS LASSITER Ondansetron HCl (Zofran Inj*) 4 mg IV Q4H PRN PRN Reason: NAUSEA Last Admin: 11/07/18 22:32 Dose: 4 mg Pharmacy Profile Note (Fentanyl Patch Check Q Shift) 1 note N/A 0700,1900 [facility] Last Admin: 11/08/18 06:44 Dose: 1 note Scopolamine (Transderm-Scop 1.5 Mg Patch*) 1 patch TRANSDERM Q72H [facility] Last Admin: 11/07/18 17:13 Dose: 1 patch Sodium Biphosphate/Sodium Phosphate (Fleet Enema*) 1 bottle [place] BID ONE Stop: 11/08/18 22:01 Vital Signs: Vital Signs: Temp Pulse Resp BP Pulse Ox 99.1 F 85 16 101/59 97 11/08/18 11:42 11/08/18 11:42 11/08/18 11:42 11/08/18 11:42 11/08/18 11:42 Patient Weight: Weight 68.402 kg Intake and Output: Intake & Output 11/06/18 11/07/18 11/08/18 11/09/18 06:59 06:59 06:59 06:59 Intake Total 1676 0 Balance 1676 0 Weight 68.402 kg Intake: IV Fluids 976 0.9 ns 976 Oral 700 0 Other: Estimated Void Large # Bowel Movements 1 Estimated Stool Amount Large # Voids 1 ADLs: Meal Record Start: 11/07/18 16: 42 Freq: DAILY@0900,1400,1800 Status: Active Protocol: Created 11/07/18 16:42 System (Rec: 11/07/18 16:42 System MED-C02) Document 11/07/18 18:00 [id number] (Rec: 11/07/18 19:21 [id number] MED-C11) Document 11/08/18 09:00 [id number] (Rec: 11/08/18 09:38 [id number] MED-C09) Intake and Output Start: 11/07/18 16: 42 Freq: DAILY@0600,1400,2200 Status: Active Protocol: Created 11/07/18 16:42 System (Rec: 11/07/18 16:42 System MED-C02) Document 11/07/18 21:22 [id number] (Rec: 11/07/18 21:22 [id number] MED-C26) Document 11/08/18 05:56 [id number] (Rec: 11/08/18 05:57 [id number] MED-C26) Head: Normal Ears/Nose/Mouth/Throat: NL Teeth, Lips, Gums Neck: NL Appearance and Movements; NL JVP Cardiovascular: NL Sounds; No Murmurs; No JVD Respiratory: Symmetrical Chest Expansion and Respiratory Effort Neurological: Alert and Oriented x 3 - Assessment Assessment: 38yo with metastatic uveal melanoma hospice eligible - Plan Consult Plan (MU): Hospice Plan: Long discussion with pt and her mothers about hospice. Pt wants to be cared for at home with hospice on board. Hospice was consulted before but pt opted for palliative radiation. Information/benefits given along a brochure. Pt can sign off at anytime. Pt requested to see spa technician who came to see her. Plan is to get symptoms under better control and then discharge to home with hospice sign on. Referral has been sent. Family said they didn't need a bed or commode. Also talked about hospice at the residence but they want to hold off. They are aware that she has 1-2 wks prognosis. Hospice eligible with diagnosis of uveal melanoma with metastasis to liver. KPS 40% PPS 40% - Time On Unit Date of Evaluation: 11/08/18 Hospice Consult Time in: 11:00 Hospice Consult Time Out: 12:30 Hospice Consult Time Total: 90 > 50% of Time Spend In Counseling or Coordinating Care: Yes
[2018-11-08] MEDS: Ondansetron INJ* 2 MG/ML VIAL IV PRN ×2 (15:21→18:26)
[2018-11-08] MEDS: Enoxaparin(*) 40 MG/0.4 ML SYR SUBCUT SCH (16:59)
[2018-11-08] MEDS ORDERED: Sodium Phosphate ADULT ENEMA* 118 ml bottle PR ONE (22:00)
[2018-11-09] MEDS: Ondansetron INJ* 2 MG/ML VIAL IV PRN (01:42)
[2018-11-09] MEDS: HYDROmorphone TAB* 4 MG PO PRN ×4 (01:50→14:14)
[2018-11-09] MEDS: LORazepam INJ* 2 MG/ML 1 ML VIAL IV PUSH PRN ×4 (02:03→14:15)
[2018-11-09] MEDS: fentaNYL Patch Check Q Shift 1 NOTE SCH (06:49)
[2018-11-09 11:11] VITALS: BP 114/73
--- NOTE | 2018-11-09 12:08 | DS ---
- Discharge Summary Admission Date: 11/07/18 Discharge Date: 11/09/18 Discharge Diagnosis: 1. End stage melanoma with liver failure: comfort measure, home with hospice Discharge Medications: Medication Instructions Recorded Confirmed Type diPHENhydraMINE PO* [Benadryl PO 25 mg PO Q6H PRN 09/12/18 11/07/18 History 25 MG TAB*] Acetaminophen TAB* [Tylenol TAB*] 650 mg PO Q4H PRN tab 11/09/18 Rx Famotidine TAB* [Pepcid 20 MG TAB*] 40 mg PO BID PRN #0 11/09/18 11/07/18 Rx FentaNYL 200 mcg Lozenge (NF) 200 mcg PO Q4HR #18 lozenge.hd MDD 11/09/18 Rx [Fentanyl Citrate Oral Lozenge] 4 doses HYDROmorphone TAB* [Dilaudid Tab*] 4 mg PO Q2H PRN #72 tab MDD 12 tabs 11/09/18 Rx LORazepam TAB(*) [Ativan 0.5 MG 0.5 mg PO Q2HR #72 tab MDD 12 doses 11/09/18 Rx TAB (*)] Lactulose* 30 ml PO TID #18 udc 11/09/18 Rx Morphine Sulfate 10 - 20 mg PO Q2H #30 ml MDD 240 mL 11/09/18 Rx Ondansetron ODT TAB* [Zofran 4 MG 4 mg SL Q4HR PRN #0 tab 11/09/18 11/07/18 Rx Odt TAB*] Scopolamine 1.5 mg* PATCH* 1 patch TRANSDERM Q72H #3 patch 11/09/18 Rx [Transderm-Scop 1.5 mg Patch*] Sodium Phosphate ADULT ENEMA* 1 enema [facility] DAILY PRN #1 btl 11/09/18 Rx [Fleet Enema*] fentaNYL PATCHs 100 MCG/HR* 100 mcg TRANSDERM Q72H #3 patch 11/09/18 Rx [Duragesic Patch 100 Mcg/Hr *] MDD 125 mcg - apply with home 25 mcg patch Disposition: Home with hopsice Condition: fair Diet: for comfort, as tolerated Activity: fall precautions Hospital Course: Please see admission note for full H&P, however briefly, Ms. Byers is well known to our service due to her unfortunate diagnosis of metastatic melanoma. She recently complete palliative RT and planned to transition to hospice, however she had progressive symptoms and was admitted from our office on 11/07 for supportive care. The patient and family are motivated to return home with supportive meds. She will have sign on 11/15/18 with hospice and the family is aware that she may decline rapidly. Ms. Byers's mother has previously cared for a grown child at end of life and is very motivated to do this again, she denied questions and concerns. Ms. Byers will be discharged with Fentanyl patch increased to 125 mcg, cont.'d PRN dilaudid and morphine, and the addition of PRN Fentanyl lozenges. Her prognosis is weeks at most, however with liver failure it may be days. Ms. Byers has intermittent confusion however is stable to return home with comfort measures. >40 min spent with >50% face to face counseling
== END 2018-11-09 14:40 | disposition hospice, home (50) | DRG 281 ==
LOC: MED 16:40
PROVIDERS: ADMIT Internal Medicine Hematology & Oncology; ATTEND Internal Medicine Hematology & Oncology
DX: C78.7 Secondary malignant neoplasm of liver and intrahepatic bile duct (principal); R44.0 Auditory hallucinations; K72.90 Hepatic failure, unspecified without coma; K59.00 Constipation, unspecified; R44.1 Visual hallucinations; G47.00 Insomnia, unspecified; F41.9 Anxiety disorder, unspecified; G89.3 Neoplasm related pain (acute) (chronic); C69.40 Malignant neoplasm of unspecified ciliary body; R41.0 Disorientation, unspecified; R50.9 Fever, unspecified; Z66 Do not resuscitate; Z51.5 Encounter for palliative care; Z88.8 Allergy status to other drugs, medicaments and biological substances; Z88.5 Allergy status to narcotic agent; Z80.51 Family history of malignant neoplasm of kidney; Z92.3 Personal history of irradiation
CPT/HCPCS: 99222; 99239; A9270-GY; J1650; J2060; J2405